=== PATIENT | male | born 1980 | race African-American/Black ===

== ENCOUNTER 2025-06-30 15:37 | Inpatient (IN) | payer OTHER ==
[~2025-06-30] VITALS: Ht 170.2 cm; Wt 76.0 kg
[2025-06-30] VITALS (38 sets, daily range): BP systolic 116–151; BP diastolic 61–107; PULSE 67; TEMP 97.4–97.8; O2SAT 98–100
[2025-06-30 17:32] LABS: BASO # 0.1 10^3/uL (0.0-0.2); BASO % 0.8 % (0.0-1.0); EOS # 0.2 10^3/uL (0.0-0.5); EOS % 3.6 % (0.0-3.0); LYMPH # 2.6 10^3/uL (1.5-5.0); LYMPH % 41.0 % (24.0-44.0); MONO # 0.6 10^3/uL (0.0-0.8); MONO % 10.0 % (2.0-8.0); NEUTROPHILS # 2.8 10^3/uL (1.5-8.5); NEUTROPHILS % 44.4 % (36.0-66.0); PLATELET COUNT, AUTOMATED 306 10^3/uL (150-450)
[2025-06-30] MEDS ORDERED: PERCOCET 5MG/325MG TAB PO PRN (17:35)
[2025-06-30] MEDS ORDERED: LEVALBUTEROL 1.25 MG 0.5ML CONCENTRATE NEB NEB PRN (17:35)
[2025-06-30] MEDS ORDERED: BISACODYL 10 MG SUPP PR PRN (17:35)
[2025-06-30] MEDS ORDERED: ACETAMINOPHEN 325 MG TAB PO PRN (17:35)
[2025-06-30] MEDS: KETOROLAC 30 MG/ML 1 ML VIAL IV ONE ×2 (17:38→19:13)
[2025-06-30] MEDS: FLUMAZENIL 0.5 MG/5 ML VIAL IV STA (17:53)
[2025-06-30 18:01] LABS: ALT/SGPT 23 U/L (7.0-40); AST/SGOT 23 U/L (<34); CALCIUM LEVEL 10.0 MG/DL (8.5-10.1); CARBON DIOXIDE LEVEL 28 MMOL/L (20-31); CHLORIDE LEVEL 105 MMOL/L (98-107); CK-MB VALUE MASS 1.6 NG/ML (<3.6); CREATININE FOR GFR 0.98 MG/DL (0.70-1.30); GLOMERULAR FILTRATION RATE > 90.0 (>60); POTASSIUM SERUM 4.4 MMOL/L (3.5-5.1); SODIUM LEVEL 141 MMOL/L (136-145)
[2025-06-30] MEDS ORDERED: BUPR1FIL SL (18:04)
[2025-06-30] MEDS ORDERED: HOME MED LIST COMPLETE! XX SCH (18:05)
[2025-06-30 18:09] LABS: CPK CREATINE PHOSPHOKINASE 388 U/L (46-171); MB/CK RELATIVE INDEX 0.41 (< OR =4)
[2025-06-30 18:49] LABS: CK-MB VALUE MASS 2.1 NG/ML (<3.6)
[2025-06-30 18:50] LABS: CPK CREATINE PHOSPHOKINASE 379.0 U/L (46-171); MB/CK RELATIVE INDEX 0.55 (< OR =4)
[2025-06-30] MEDS: D5W/0.9% SODIUM CHLORIDE 1,000 ML IV SCH (19:00)
[2025-06-30] MEDS: LIDOCAINE 1% MDV 20 ML VIAL SC STA (19:01)
[2025-06-30] MEDS: MIDAZOLAM INJ 2 MG/2 ML VIAL IV STA (19:04)
[2025-06-30] MEDS: LEVALBUTEROL 1.25 MG 0.5ML CONCENTRATE NEB NEB SCH (20:45)
[2025-06-30] MEDS: DOCUSATE SODIUM 100 MG CAPSULE PO SCH (20:58)
[2025-06-30] MEDS: PERCOCET 5MG/325MG TAB PO PRN (21:04)
[2025-06-30] MEDS: HEPARIN SOD 5000 UNITS/ML 1 ML VIAL/SYRINGE SC SCH (21:04)
[2025-06-30] MEDS: KETOROLAC 30 MG/ML 1 ML VIAL IV SCH (23:26)
[2025-07-01] VITALS (11 sets, daily range): BP systolic 134–167; BP diastolic 76–95; PULSE 54–66; TEMP 97.2–98.4; O2SAT 98–100
[2025-07-01] MEDS: MORPHINE 2 MG/ML 1 ML VIAL IV ONE (00:17)
[2025-07-01 05:54] LABS: BASO # 0.0 10^3/uL (0.0-0.2); BASO % 0.7 % (0.0-1.0); EOS # 0.2 10^3/uL (0.0-0.5); EOS % 3.8 % (0.0-3.0); LYMPH # 2.3 10^3/uL (1.5-5.0); LYMPH % 41.9 % (24.0-44.0); MONO # 0.5 10^3/uL (0.0-0.8); MONO % 8.8 % (2.0-8.0); NEUTROPHILS # 2.5 10^3/uL (1.5-8.5); NEUTROPHILS % 44.6 % (36.0-66.0); PLATELET COUNT, AUTOMATED 267 10^3/uL (150-450)
[2025-07-01 06:26] LABS: CALCIUM LEVEL 8.7 MG/DL (8.5-10.1); CARBON DIOXIDE LEVEL 26 MMOL/L (20-31); CHLORIDE LEVEL 107 MMOL/L (98-107); CREATININE FOR GFR 1.03 MG/DL (0.70-1.30); GLOMERULAR FILTRATION RATE > 90.0 (>60); POTASSIUM SERUM 4.4 MMOL/L (3.5-5.1); SODIUM LEVEL 141 MMOL/L (136-145)
[2025-07-01] MEDS: MOM 30 ML SUSPENSION UDC PO SCH (09:00)
[2025-07-01] MEDS: ONDANSETRON 4MG 2ML VIAL IV PRN (09:41)
[2025-07-01] MEDS: PANTOPRAZOLE 40MG TAB PO SCH (09:41)
[2025-07-02] VITALS (14 sets, daily range): BP systolic 145–207; BP diastolic 70–115; TEMP 97.3–98.1; O2SAT 96–100
[2025-07-02] MEDS: hydrALAZINE 20 MG/ML 1 ML VIAL IV ONE (04:21)
[2025-07-02 05:40] LABS: BASO # 0.0 10^3/uL (0.0-0.2); BASO % 0.5 % (0.0-1.0); EOS # 0.2 10^3/uL (0.0-0.5); EOS % 2.5 % (0.0-3.0); LYMPH # 2.0 10^3/uL (1.5-5.0); LYMPH % 26.7 % (24.0-44.0); MONO # 0.7 10^3/uL (0.0-0.8); MONO % 9.7 % (2.0-8.0); NEUTROPHILS # 4.4 10^3/uL (1.5-8.5); NEUTROPHILS % 60.5 % (36.0-66.0); PLATELET COUNT, AUTOMATED 290 10^3/uL (150-450)
[2025-07-02 06:11] LABS: CALCIUM LEVEL 9.3 MG/DL (8.5-10.1); CARBON DIOXIDE LEVEL 25 MMOL/L (20-31); CHLORIDE LEVEL 105 MMOL/L (98-107); CREATININE FOR GFR 0.99 MG/DL (0.70-1.30); GLOMERULAR FILTRATION RATE > 90.0 (>60); POTASSIUM SERUM 4.3 MMOL/L (3.5-5.1); SODIUM LEVEL 141 MMOL/L (136-145)
[2025-07-03 03:32] VITALS: BP 142/62; TEMP 97.5; O2SAT 97
[2025-07-03 05:27] LABS: BASO # 0.0 10^3/uL (0.0-0.2); BASO % 0.7 % (0.0-1.0); EOS # 0.2 10^3/uL (0.0-0.5); EOS % 4.1 % (0.0-3.0); LYMPH # 1.8 10^3/uL (1.5-5.0); LYMPH % 29.9 % (24.0-44.0); MONO # 0.7 10^3/uL (0.0-0.8); MONO % 12.0 % (2.0-8.0); NEUTROPHILS # 3.1 10^3/uL (1.5-8.5); NEUTROPHILS % 53.1 % (36.0-66.0); PLATELET COUNT, AUTOMATED 261 10^3/uL (150-450)
[2025-07-03 05:56] LABS: CALCIUM LEVEL 9.3 MG/DL (8.5-10.1); CARBON DIOXIDE LEVEL 28.0 MMOL/L (20-31); CHLORIDE LEVEL 106.0 MMOL/L (98-107); CREATININE FOR GFR 1.09 MG/DL (0.70-1.30); GLOMERULAR FILTRATION RATE 86.9 (>60); POTASSIUM SERUM 4.2 MMOL/L (3.5-5.1); SODIUM LEVEL 144.0 MMOL/L (136-145)
[2025-07-03 08:27] VITALS: BP 172/102; TEMP 98.2; O2SAT 99
== END 2025-07-03 09:50 | disposition left against medical advice (07) | DRG 143 ==
LOC: M ED 15:37 → M PCU 17:59
PROVIDERS: ADMIT Internal Medicine; ATTEND Student in an Organized Health Care Education/Training Program
PROC: 0W9B3ZZ Drainage of Left Pleural Cavity, Percutaneous Approach (ICD-10-PCS; principal; 2025-06-30)
DX: J93.9 Pneumothorax, unspecified (principal); I10 Essential (primary) hypertension; F17.200 Nicotine dependence, unspecified, uncomplicated